=== PATIENT | male | born 1950 | race Caucasian/White ===

== ENCOUNTER 2020-08-20 01:18 | Outpatient (CLI) | payer MEDICARE, OTHER, SELFPAY ==
[2020-08-20 18:01] LABS: SARS-CoV-2 RNA PCR Negative
== END 2020-08-20 01:19 | disposition home or self-care (01) ==
LOC: ANHCOVIDDT 01:19
PROVIDERS: PCP Internal Medicine; Visit Provider Internal Medicine Critical Care Medicine
DX: Z01.812 Encounter for preprocedural laboratory examination (principal); Z20.828 Contact with and (suspected) exposure to other viral communicable diseases
CPT/HCPCS: 87635; C9803; U0003

== ENCOUNTER 2020-08-22 07:41 | Outpatient (CLI) | payer MEDICARE, OTHER, SELFPAY ==
--- NOTE | 2020-09-06 13:46 | WPDSLEEPSTUD ---
Sleep Study Date of Study: 08/22/20 Interpreting Physician: Viry Vora MD Sleep Study Type: Split Polysomnogram Height: 1.91 m Weight: 102.058 kg Body Mass Index: 28.1 Hendrix: 7 Reason for Sleep Study ASV TITRATION Central sleep apnea, not responding to CPAP Presents for ASV titration, Adaptive Servo-Ventilation. Sleep History Yobany Summers is a 69 year old man with long history of obstructive sleep apnea and more recently primarily central apneas. his most recent treatment has consisted of CPAP 15 cm which has not been easy to tolerate and has not been helpful. He was diagnosed with obstructive sleep apnea syndrome on a split night study June 04, 2015, at [facility]. He had moderate obstructive sleep apnea with an AHI of 21.7 with associated nocturnal desaturations to 86%. He was titrated to CPAP with a nasal mask at 14 cm, which improved his AHI to 2.5 events per hour with elimination of nocturnal desaturations. He had a difficult time tolerating 14 cm and was eventually decreased to 10 cm of water pressure which did not work as the pressure did not feel high enough, feeling claustrophobic. He was not able to get enough sleep, only 1 or 2 hours of sleep at night. Melatonin helps fall asleep, but only if he has the mask off. His reports witnessed apneas. He has a brother and a son that use CPAP, so there is a family history. He frequently awakens from sleep short of breath. He rarely snores and it is never loud enough that others complain. He occasionally has trouble sleeping with cold. He constantly awakes gasping for breath at night and constantly has breathing problems at night observed by others. Rarely does he fall asleep during the day and rarely is it involuntary. He does not fall asleep while driving. He does not have loss of muscle tone with strong emotion. He denies sleep paralysis or vivid dreamlike scenes upon awakening or falling asleep. He occasionally remembers his dreams. He frequently has racing thoughts. He occasionally notices parts of his body jerking and kick at night. He rarely has crawly or aching feelings in his legs or has leg pain at night. He rarely grinds his teeth at night. He rarely wakes up with pain in the neck and spine. Normal bedtime is 10:30 to 11 p.m., falling asleep in 10 minutes, waking 1 or 2 times at night for 5 minutes to take off the CPAP. He awakens between 6 and 7 in the morning. He has 7 to 8 hours of sleep, but not continuous, very fragmented. Weekend schedule is the same. He denies taking naps. He has problems adjusting to using a ramp for 20 min, will wake at night and need to turn machine off then on to return to the ramp after waking early in the night. He is drinking alcohol about 4 nights a week, up to 3 drinks per night. During pandemic, this has increased. He takes melatonin at bedtime. A chin strap is due to arrive at his house, as he is a mouth breather sleeping on his stomach, and this complicates his PAP therapy. He has an extremely dry mouth at night, will wake at night due to having his mouth feel very dry. He feels that the pressure is greater now than it previously was. He has an ivis on his phone that he uses to help track his AHI. Some nights it is very high, around 20. Other nights, it is as low as 3. He has very few nights where he is able to tolerate the device greater than 4 hours. On these nights the AHI is low. His overall AHI is 13.7 and he has only used the device greater than 4 hours on 7% of the nights. he often wakes up to find his mask on the floor or hanging on the side of the bed, and he does not know when he took it off Compliance: June 19 through July 18, 2020 30 days 7% or 2 days greater than 4 hours, average usage 2 hours 15 cm AHI is 13.7 DATA: * 06/04/2015 Split night at [facility]; AHI 21.7, lowest saturation 86%, optimal pressure 14 cm. * 08/23/2018 CPAP titration; 6 cm to 13 cm dede
--- NOTE | 2020-09-06 15:59 | P.SLEEP_ITS ---
Sleep Study Date of Study: 08/22/20 Height: 1.91 m [facility] Past Medical History Medical History (Updated 09/06/20 @ 15:32 by Viry Vora MD) Bilateral hearing loss Complex sleep apnea syndrome Dupuytrens contracture Encounter for preventative adult health care examination Encounter for screening for lipoid disorders Encounter for screening for other metabolic disorders Hyperglycemia Hypothyroidism (acquired) Leg pain, left Prostate cancer screening Family History Family History Father Family history of sleep apnea Diabetes mellitus Family history of Alzheimer's disease Sibling Family history of sleep apnea Diabetes mellitus Mother Family history of osteoarthritis Social History Social History Smoking status: Former smoker Smoking end date: 11/23/83 Alcohol intake: current
[2020-09-07 09:44] VITALS: BMI 28.1
== END 2020-08-22 07:42 | disposition home or self-care (01) ==
LOC: ANHCSM 07:49
PROVIDERS: PCP Internal Medicine; Visit Provider Internal Medicine Critical Care Medicine
DX: G47.31 Primary central sleep apnea (principal); E03.9 Hypothyroidism, unspecified; R73.9 Hyperglycemia, unspecified
CPT/HCPCS: 95811

== ENCOUNTER 2020-09-25 12:54 | Outpatient (CLI) | payer MEDICARE, OTHER, SELFPAY ==
[2020-09-25 13:18] LABS: Basophils Absolute Auto 0.1 K/mm3 (0.0-0.1); Basophils Percent Auto 0.7 % (0.2-1.2); Eosinophils Absolute Auto 0.1 K/mm3 (0-0.3); Hemoglobin 14.9 g/dL (14.0-18.0); Immature Granulocyte Absolute 0.03 K/mm3 (0.00-0.031); Immature Granulocyte Percent A 0.4 % (0-0.5); Lymphocytes Percent Auto 32.8 % (18.3-44.2); Mean Corpuscular HGB Conc 34.7 g/dl (32-36); Mean Corpuscular Hemoglobin 30.7 pg (26-34); Mean Corpuscular Volume 88.7 fl (80-100); Mean Platelet Volume 9.3 fl (7.4-10.4); Monocytes Absolute Auto 0.8 K/mm3 (0.1-0.6); Monocytes Percent Auto 10.4 % (2.6-8.5); Neutrophils Percent Auto 54.7 % (45.5-73.1); Platelet Count Result 212 k/mm3 (150-375); Red Blood Count 4.85 M/mm3 (4.6-6.20); Red Cell Distribution Width 13.2 % (11.5-14.5); White Blood Count 7.3 K/mm3 (4.5-10.0)
[2020-09-25 13:36] LABS: Alanine Aminotransferase 24 U/L (4-50); Albumin Level 4.3 g/dL (3.5-5.1); Alkaline Phosphatase 61 U/L (38-126); Anion Gap 8 mmol/L (8-16); Aspartate Amino Transferase 26 U/L (17-59); Blood Urea Nitrogen 13 mg/dL (9-20); Calcium 9.2 mg/dL (8.4-10.2); Carbon Dioxide 33 mmol/L (22-30); Chloride 102 mmol/L (98-107); Cholesterol 163 mg/dL (0-200); Estimated Glomerular Filt Rate > 60; Glucose 114 mg/dL (75-110); HDL Direct 42 mg/dL; Potassium 4.1 mmol/L (3.4-5.0); Sodium 143 mmol/L (137-145); Triglycerides 122 mg/dL (<150)
[2020-09-25 13:47] LABS: LDL Cholesterol Direct 88 mg/dL
[2020-09-25 14:26] LABS: Vitamin D 25 Hydroxy 55.8 ng/mL
[2020-09-25 15:04] LABS: Prostate Specific Antigen 1.8 ng/mL (< OR = 4.0)
== END 2020-09-25 12:55 | disposition home or self-care (01) ==
LOC: ANHLAB 12:59
PROVIDERS: PCP Internal Medicine; Visit Provider Internal Medicine
DX: Z13.228 Encounter for screening for other metabolic disorders (principal); Z13.220 Encounter for screening for lipoid disorders; Z12.5 Encounter for screening for malignant neoplasm of prostate; E03.9 Hypothyroidism, unspecified; E55.9 Vitamin D deficiency, unspecified
CPT/HCPCS: 36415; 80053; 80061; 82306; 84153; 84443; 85025; G0103

== ENCOUNTER → 2020-10-08 07:38 | Outpatient (CLI) | payer MEDICARE, OTHER, SELFPAY ==
--- NOTE | ~2020-10-08 | US_ITS ---
EXAMINATION: [facility] EXAM DATE: 10/08/2020 08:05 INDICATION: Z13.6 - Encounter for screening for cardiovascular disorders . TECHNIQUE: Multiple grayscale and Doppler images of the aorta were obtained (by a technologist who pe rformed the scan) and subsequently reviewed. There is no prior study for comparison. FINDINGS: The aorta measures 2.6 cm proximally, 2.0 cm mid aspect, 1.9 cm distally. Common iliac arteries also normal in caliber. Minimal scattered arterial sclerosis identified. IMPRESSION: Normal aortic caliber. Reviewed, dictated and finalized at location A. [employer]IST IMPRESSION: Normal aortic caliber.
== END ==
PROVIDERS: PCP Internal Medicine; Visit Provider Clinical Nurse Specialist
DX: Z13.6 Encounter for screening for cardiovascular disorders (principal)
CPT/HCPCS: 76706

== ENCOUNTER 2020-10-24 07:36 | Outpatient (CLI) | payer MEDICARE, OTHER, SELFPAY ==
--- NOTE | 2020-10-24 07:41 | ECHO_ITS ---
Patient Info Name: Yobany Summers Age: 70 years : 1950 Gender: Male Ht: 75 in Wt: 220 lbs BSA: 2.31 m2 HR: 51 bpm BP: 134 / 80 mmHg Heart Rhythm: Bradycardia, Sinus Rhythm Technical Quality: Good Exam Date: 10/24/2020 7:44 AM Exam Location: [facility] Patient Status: Outpatient Admit Date: 10/24/2020 Staff Ordering Physician: Candida Vernon Lapel Padder: Mich Grande RDCS, RT Attending Provider: Candida Vernon Referring Physician: Janeen JAVIER; Exam Type: CA echo doppler color flow Study Info Indications R07.89 - Other chest pain Complete two-dimensional, color flow and Doppler transthoracic echocardiogram is performed. Strain analysis performed. Summary 1. Left ventricular chamber dimension is upper limits of normal size.. 2. Left ventricular systolic function is normal, estimated at 60-65%. 3. The left ventricular diastolic function is grade II diastolic dysfunction. 4. There is mild mitral valve regurgitation. 5. No pulmonary hypertension, estimated pulmonary arterial systolic pressure is 27 mmHg. Left Ventricle Left ventricular chamber dimension is upper limits of normal size.. Left ventricular systolic function is normal, estimated at 60-65%. There is no increased left ventricular wall thickness. The left ventricular diastolic function is grade II diastolic dysfunction. Global longitudinal strain is normal at -19 %. Right Ventricle Right ventricular chamber dimension is normal. Right ventricular systolic function is normal. Left Atria Left atrial chamber dimension is normal. Right Atria Right atrial chamber dimension is normal. Aortic Valve The aortic valve is not well visualized. There is no aortic valve stenosis. There is no aortic valve regurgitation. Pulmonic Valve The pulmonic valve is not well visualized. Mitral Valve The mitral valve has thickened leaflets. There is mild mitral valve regurgitation. The mitral valve annulus is mildly calcified. Tricuspid Valve The tricuspid valve leaflets are normal. There is mild tricuspid valve regurgitation. No pulmonary hypertension, estimated pulmonary arterial systolic pressure is 27 mmHg. Pericardium/Pleural The pericardium appears normal. There is no pericardial effusion. Inferior Vena Cava Normal inferior vena cava with >50% collapse upon inspiration consistent with normal right atrial pressure, 5 mmHg. Aorta The aortic root size at the sinus of Valsalva is normal. There is mild aortic atherosclerosis. Left Ventricular Outflow Tract Name Value Normal LVOT 2D LVOT Diameter 2.0 cm LVOT Doppler LVOT Peak Gradient 4 mmHg LVOT Mean Gradient 2 mmHg LVOT VTI 21 cm LVOT VTI/AV VTI Ratio 0.8 LVOT Stroke Volume 66 ml LVOT CO 4.0 l/min LVOT CI 1.7 l/min/m2 Mitral Valve Name
--- NOTE | 2020-10-24 07:41 | EST_ITS ---
Patient Info Name: Yobany Summers Age: 70 years : 1950 Gender: Male Ht: 75 in Wt: 220 lbs BSA: 2.31 m2 Exam Date: 10/24/2020 9:27 AM Exam Location: [facility] Stress Patient Status: Outpatient Admit Date: 10/24/2020 Staff Ordering Physician: Candida Vernon Attending Provider: Candida Vernon Exercise Technologist: Mich Grande RDCS, RT Exercise Physician: Demetrio King DO Exam Type: CA stress test treadmill Study Info A treadmill exercise stress test was performed. Summary 1. 1. Negative Conor exercise stress test for ischemic ST changes by ECG criteria. 2. 2. Good functional capacity, achieving 8.9 METs of workload. 3. 3. Baseline hypertension. 4. 4. Appropriate HR response to exercise. 5. 5. Appropriate HR recovery at 1 minute post exercise. 6. 6. No imaging with stress testing. 7. 7. Patient informed of the above results. Protocol: Conor Stress ECG Details Stage: REST Duration (min): 1 min : 14 sec Speed (mph): 0.0 Grade (%): 0 HR (bpm): 63 SBP (mmHg): 150 DBP (mmHg): 86 METS: --- Stage: REST Duration (min): 3 min : 48 sec Speed (mph): 0.0 Grade (%): 0 HR (bpm): 52 SBP (mmHg): 150 DBP (mmHg): 86 METS: --- Stage: STAGE 1 Duration (min): 1 min : 0 sec Speed (mph): 1.7 Grade (%): 10 HR (bpm): 83 SBP (mmHg): 150 DBP (mmHg): 86 METS: --- Stage: STAGE 1 Duration (min): 2 min : 0 sec Speed (mph): 1.7 Grade (%): 10 HR (bpm): 94 SBP (mmHg): 150 DBP (mmHg): 86 METS: --- Stage: STAGE 1 Duration (min): 3 min : 0 sec Speed (mph): 1.7 Grade (%): 10 HR (bpm): 98 SBP (mmHg): 183 DBP (mmHg): 57 METS: --- Stage: STAGE 2 Duration (min): 1 min : 0 sec Speed (mph): 2.5 Grade (%): 12 HR (bpm): 108 SBP (mmHg): 183 DBP (mmHg): 57 METS: --- Stage: STAGE 2 Duration (min): 2 min : 0 sec Speed (mph): 2.5 Grade (%): 12 HR (bpm): 116 SBP (mmHg): 160 DBP (mmHg): 58 METS: --- Stage: STAGE 2 Duration (min): 3 min : 0 sec Speed (mph): 2.5 Grade (%): 12 HR (bpm): 119 SBP (mmHg): 160 DBP (mmHg): 58 METS: --- Stage: STAGE 3 Duration (min): 1 min : 0 sec Speed (mph): 3.4 Grade (%): 14 HR (bpm): 133 SBP (mmHg): 165 DBP (mmHg): 55 METS: --- Stage: STAGE 3 Duration (min): 1 min : 7 sec Speed (mph): 3.4 Grade (%): 14 HR (bpm): 126 SBP (mmHg): 165 DBP (mmHg): 55 METS: --- Stage: RECOVERY Duration (min): 0 min : 53 sec Speed (mph): 0.0 Grade (%): 0 HR (bpm): 108 SBP (mmHg): 165 DBP (mmHg): 55 METS: --- Stage: RECOVERY Duration (min): 1 min : 52 sec Speed (mph): 0.0 Grade (%): 0 HR (bpm): 76 SBP (mmHg): 165 DBP (mmHg): 55 METS: --- Stage: RECOVERY Duration (min): 1 min : 53 sec Speed (mph): 0.0
== END 2020-10-24 07:37 | disposition home or self-care (01) ==
PROVIDERS: PCP Internal Medicine; Visit Provider Clinical Nurse Specialist
DX: R07.89 Other chest pain (principal); I34.0 Nonrheumatic mitral (valve) insufficiency
CPT/HCPCS: 93017; 93306

== ENCOUNTER 2021-09-30 09:56 | Outpatient (CLI) | payer MEDICARE, OTHER, SELFPAY ==
[2021-09-30 10:34] LABS: Basophils Percent Auto 0.5 % (0.2-1.2); Eosinophils Absolute Auto 0.1 K/mm3 (0-0.3); Eosinophils Percent Auto 1.3 % (0-4.4); Hematocrit 41.7 % (42.0-52.0); Hemoglobin 14.5 g/dL (14.0-18.0); Immature Granulocyte Absolute 0.02 K/mm3 (0.00-0.031); Immature Granulocyte Percent A 0.3 % (0-0.5); Lymphocytes Absolute Auto 2.19 K/mm3 (0.9-3.2); Lymphocytes Percent Auto 36.7 % (18.3-44.2); Mean Corpuscular HGB Conc 34.8 g/dl (32-36); Mean Corpuscular Hemoglobin 30.8 pg (26-34); Mean Corpuscular Volume 88.5 fl (80-100); Mean Platelet Volume 9.6 fl (7.4-10.4); Monocytes Absolute Auto 0.8 K/mm3 (0.1-0.6); Monocytes Percent Auto 13.1 % (2.6-8.5); Neutrophils Absolute Auto 2.9 K/mm3 (1.3-6.7); Neutrophils Percent Auto 48.1 % (45.5-73.1); Platelet Count Result 206 k/mm3 (150-375); Red Blood Count 4.71 M/mm3 (4.6-6.20); Red Cell Distribution Width 13.2 % (11.5-14.5)
[2021-09-30 12:43] LABS: Alanine Aminotransferase 54 U/L (4-50); Albumin Level 4.2 g/dL (3.5-5.1); Alkaline Phosphatase 51 U/L (38-126); Anion Gap 5 mmol/L (8-16); Aspartate Amino Transferase 37 U/L (17-59); Blood Urea Nitrogen 20 mg/dL (9-20); Calcium 8.9 mg/dL (8.4-10.2); Carbon Dioxide 31 mmol/L (22-30); Chloride 102 mmol/L (98-107); Cholesterol 168 mg/dL (0-200); Estimated Glomerular Filt Rate > 60; Glucose 104 mg/dL (65-110); HDL Direct 38 mg/dL; Potassium 4.4 mmol/L (3.4-5.0); Sodium 138 mmol/L (137-145); Triglycerides 108 mg/dL (<150)
[2021-09-30 13:13] LABS: Prostate Specific Antigen 1.9 ng/mL (< OR = 4.0)
[2021-09-30 14:03] LABS: Vitamin D 25 Hydroxy 61.8 ng/mL
[2021-09-30 18:56] LABS: LDL Cholesterol Direct 100 mg/dL
== END 2021-09-30 09:57 | disposition home or self-care (01) ==
LOC: ANHLAB 10:17
PROVIDERS: PCP Internal Medicine; Visit Provider Nurse Practitioner
DX: E55.9 Vitamin D deficiency, unspecified (principal); I10 Essential (primary) hypertension; Z13.220 Encounter for screening for lipoid disorders; Z12.5 Encounter for screening for malignant neoplasm of prostate; E03.9 Hypothyroidism, unspecified
CPT/HCPCS: 36415; 80053; 80061; 82306; 84153; 84443; 85025; G0103

== ENCOUNTER 2022-02-27 09:09 | Outpatient (CLI) | payer MEDICARE, OTHER, SELFPAY ==
--- NOTE | ~2022-02-27 | XR_ITS ---
EXAMINATION: XR knee LT 3V DATE: 02/27/2022 09:42 INDICATION: Left knee pain. TECHNIQUE: 3 views of left knee were obtained. COMPARISON: None. FINDINGS: Bone alignment is normal. No fracture. There is mild tricompartmental osteoarthritis charac terized by tiny osteophytes. No joint space narrowing. No knee joint effusion. IMPRESSION: 1. Mild left knee osteoarthritis. Reviewed, dictated and finalized at location A.
== END 2022-02-27 09:10 | disposition home or self-care (01) ==
PROVIDERS: PCP Internal Medicine; Visit Provider Nurse Practitioner
DX: M25.562 Pain in left knee (principal); M17.12 Unilateral primary osteoarthritis, left knee
CPT/HCPCS: 73562

== ENCOUNTER 2022-10-09 10:21 | Outpatient (CLI) | payer MEDICARE, OTHER, SELFPAY ==
[2022-10-09 19:32] LABS: Basophils Percent Auto 0.5 % (0.2-1.2); Eosinophils Absolute Auto 0.1 K/mm3 (0-0.3); Eosinophils Percent Auto 1.5 % (0-4.4); Hematocrit 45.1 % (42.0-52.0); Hemoglobin 15.2 g/dL (14.0-18.0); Hemoglobin A1C 5.8 % (<5.7); Immature Granulocyte Absolute 0.02 K/mm3 (0.00-0.031); Immature Granulocyte Percent A 0.3 % (0-0.5); Lymphocytes Absolute Auto 2.38 K/mm3 (0.9-3.2); Lymphocytes Percent Auto 30.6 % (18.3-44.2); Mean Corpuscular HGB Conc 33.7 g/dl (32-36); Mean Corpuscular Hemoglobin 30.2 pg (26-34); Mean Corpuscular Volume 89.5 fl (80-100); Mean Platelet Volume 9.9 fl (7.4-10.4); Monocytes Absolute Auto 0.8 K/mm3 (0.1-0.6); Neutrophils Absolute Auto 4.5 K/mm3 (1.3-6.7); Neutrophils Percent Auto 57.1 % (45.5-73.1); Platelet Count Result 223 k/mm3 (150-375); Red Blood Count 5.04 M/mm3 (4.6-6.20); Red Cell Distribution Width 13.5 % (11.5-14.5); White Blood Count 7.8 K/mm3 (4.5-10.0)
[2022-10-09 19:34] LABS: Alanine Aminotransferase 47 U/L (6-50); Albumin Level 4.3 g/dL (3.5-5.1); Alkaline Phosphatase 69 U/L (38-126); Anion Gap 9 mmol/L (8-16); Aspartate Amino Transferase 48 U/L (17-59); Bilirubin,Total 1.1 mg/dL (0.2-1.3); Blood Urea Nitrogen 15 mg/dL (9-20); Carbon Dioxide 32 mmol/L (22-30); Chloride 100 mmol/L (98-107); Cholesterol 187 mg/dL (0-200); Estimated Glomerular Filt Rate > 60; Glucose 104 mg/dL (65-110); HDL Direct 39 mg/dL; Potassium 4.2 mmol/L (3.4-5.0); Sodium 141 mmol/L (137-145); Triglycerides 78 mg/dL (<150)
[2022-10-09 19:51] LABS: LDL Cholesterol Direct 111 mg/dL
[2022-10-09 20:06] LABS: Prostate Specific Antigen 1.5 ng/mL (< OR = 4.0)
== END 2022-10-09 10:22 | disposition home or self-care (01) ==
LOC: ANHGOSHLAB 10:27
PROVIDERS: PCP Internal Medicine; Visit Provider Nurse Practitioner
DX: Z12.5 Encounter for screening for malignant neoplasm of prostate (principal); R73.9 Hyperglycemia, unspecified; Z13.29 Encounter for screening for other suspected endocrine disorder; Z13.220 Encounter for screening for lipoid disorders; E03.9 Hypothyroidism, unspecified; I10 Essential (primary) hypertension
CPT/HCPCS: 36415; 80053; 80061; 83036; 84153; 84443; 85025; G0103

== ENCOUNTER 2023-05-07 13:32 | Emergency (ER) | payer MEDICARE, OTHER, SELFPAY ==
[2023-05-07 13:43] VITALS: BP 109/69; PULSE 68; RESP 16; TEMP 37.1; O2SAT 95
--- NOTE | 2023-05-07 13:47 | ED.WOUNDLAC ---
HPI - Wound/Laceration General Chief Complaint: Wound/Laceration Stated Complaint: Left Hand Laceration Time Seen by Provider: 05/07/23 13:38 Source: patient Mode of arrival: ambulatory Limitations: no limitations History of Present Illness HPI narrative: Patient is a 72-year-old male who presents with laceration to left index finger. Patient states he cut it on a chopped off injury history here. Patient states does not do well with blood and has passed out frequently with IM injections. Patient unsure of tetanus status. Denies any numbness tingling to hand. On examination of finger patient states he feels very faint, having blurry vision and feels very hot. Related Data Home Medications Medication Instructions Recorded Confirmed melatonin 5 mg capsule mg PO 10/05/19 01/16/23 grqomrljzimk-pvyprpqo-fizkbc tablet 1 tablet PO DAILY 08/07/20 01/16/23 cetirizine 10 mg tablet (Zyrtec) 10 mg PO DAILY PRN 10/07/21 01/16/23 cholecalciferol (vitamin D3) 25 25 mcg PO DAILY 10/10/22 01/16/23 mcg (1,000 unit) capsule eyelid cleanser combination 1 ea topical 10/10/22 01/16/23 sodium chloride 5 % eye drops 1 drp EACH EYE QHS 10/10/22 01/16/23 (Bill 128) omega-3 fatty acids 1,000 mg See Rx Instructions PO DAILY 12/12/22 01/16/23 capsule (Fish Oil Concentrate) Allergies Allergy/AdvReac Type Severity Reaction Status Date / Time No Known Allergies Allergy Verified 05/07/23 13:42 Review of Systems Review of Systems: All systems reviewed & are unremarkable except as noted in HPI and below Constitutional: Constitutional: Denies body ache(s), Denies chills, Reports excessive sweating, Denies fatigue, Denies fever(s), Denies headache(s), Denies malaise and Reports weakness Eyes: Eyes: Reports blurry vision, Denies irritation and Denies loss of vision ENT: Denies otalgia, Denies headache(s), Denies nasal discharge, Denies sinus pain and Denies sore throat Cardiovascular: Cardiovascular: Denies chest pain, Denies irregular heart rhythm and Denies dyspnea Respiratory: Respiratory: Denies dyspnea Gastrointestinal: Gastrointestinal: Denies abdominal pain, Denies melena, Denies hematochezia, Denies diarrhea, Denies nausea and Denies vomiting Musculoskeletal: Musculoskeletal: Denies back pain, Denies myalgias and Denies arthralgias Integumentary/Breasts: Skin/Breast: Denies pruritus, Denies rash and Reports other (Laceration left index finger) Neurologic: Reports dizziness, Denies headache(s), Denies loss of vision and Denies weakness Psychiatric: Psychiatric: Reports no additional psychiatric complaints Endocrine: Endocrine: Denies fatigue [facility] Past Medical History Medical History (Reviewed 01/16/23 @ 09:35 by Maureen Avery [facility]) Bilateral hearing loss Complex sleep apnea syndrome Dupuytrens contracture Encounter for preventative adult health care examination Encounter for screening for lipoid disorders Encounter for screening for other metabolic disorders Hyperglycemia Hypothyroidism (acquired) Leg pain, left Need for influenza vaccination OAB (overactive bladder) Prostate cancer screening Surgical History Surgical History History of skin surgery basal cell removal Family History Family History Father Family history of sleep apnea Diabetes mellitus Family history of Alzheimer's disease Sibling Family history of sleep apnea Diabetes mellitus Mother Family history of osteoarthritis Social History Social History Social History: Caffeine-coffee daily Smoking status: Former smoker Smoking end date: 11/23/83 Additional smoking assessment comments: former heavy smoker, smoked for 15 years off and on Alcohol intake: current Alcohol use details: occasionally/socially-Beer Lack of Transportation: No Lack of Food: Never True Current
[2023-05-07 13:56] VITALS: BP 86/57
--- NOTE | 2023-05-07 14:00 | PC.NURSE ---
1400- pt feels hot to touch and diaphoretic, reports he is dizzy and is having difficulty.
== END 2023-05-07 14:12 | disposition short-term general hospital (02) ==
PROVIDERS: Emergency Provider Nurse Practitioner Family; PCP Internal Medicine
DX: I95.9 Hypotension, unspecified (principal); S61.211A Laceration without foreign body of left index finger without damage to nail, initial encounter; W27.0XXA Contact with workbench tool, initial encounter; Z87.891 Personal history of nicotine dependence; E03.9 Hypothyroidism, unspecified
CPT/HCPCS: 99212; G0463

== ENCOUNTER 2023-05-07 14:32 | Emergency (ER) | payer MEDICARE, OTHER, SELFPAY ==
--- NOTE | ~2023-05-07 | XR_ITS ---
XR finger 2nd LT min 2V 05/07/2023 17:28 INDICATION: Laceration by saw. PROCEDURE: 3 views left second finger COMPARISON: No prior studies for comparison. FINDINGS: Fracture, dislocation or subluxation is not identified. There is mild polyarticular osteoar thritis. There is a soft tissue laceration overlying the distal phalanx. No foreign bodies are ident ified. IMPRESSION: 1: NO ACUTE BONE OR JOINT ABNORMALITY IDENTIFIED. Reviewed, dictated and finalized at location L.
[2023-05-07 14:35] VITALS: BP 127/74; PULSE 66; RESP 18; TEMP 36.6; O2SAT 98
--- NOTE | 2023-05-07 17:34 | ED.WOUNDLAC ---
HPI - Wound/Laceration General Chief Complaint: Wound/Laceration Stated Complaint: laceration on left index finger Time Seen by Provider: 05/07/23 17:07 History of Present Illness HPI narrative: Patient is a 72-year-old male here for evaluation of a laceration to his left second digit sustained earlier today. Patient states that he was using a saw when he lost control of the saw and believes the metal blade cut his fingertip. He presented to an urgent care and had a vagal episode when they were doing the dressing changes and he was referred to the ED. Patient states that he feels fine now, states that he has frequent vagal episodes in response to pain. His last tetanus shot was in 2017. He denies any numbness, tingling, weakness in the finger. Related Data Home Medications Medication Instructions Recorded Confirmed melatonin 5 mg capsule mg PO 10/05/19 01/16/23 nmzsanewcuji-nhablemz-lqrhop tablet 1 tablet PO DAILY 08/07/20 01/16/23 cetirizine 10 mg tablet (Zyrtec) 10 mg PO DAILY PRN 10/07/21 01/16/23 cholecalciferol (vitamin D3) 25 25 mcg PO DAILY 10/10/22 01/16/23 mcg (1,000 unit) capsule eyelid cleanser combination 1 ea topical 10/10/22 01/16/23 sodium chloride 5 % eye drops 1 drp EACH EYE QHS 10/10/22 01/16/23 (Bill 128) omega-3 fatty acids 1,000 mg See Rx Instructions PO DAILY 12/12/22 01/16/23 capsule (Fish Oil Concentrate) Allergies Allergy/AdvReac Type Severity Reaction Status Date / Time No Known Allergies Allergy Verified 05/07/23 17:18 Review of Systems Review of Systems: Gen.: Denies fevers or chills Eyes: Denies eye pain or visual change ENT: Denies congestion Respiratory: Denies shortness of breath or cough CV: Denies chest pain or palpitations GI: Denies abdominal pain nausea, emesis or diarrhea denies burning, urgency, frequency or hematuria Musculoskeletal: Denies back pain or muscle pain Neuro: Denies numbness, tingling, weakness or focal weakness Skin: Reports laceration to finger Except as documented, all other systems reviewed and negative PMFSH Past Medical History Medical History Bilateral hearing loss Complex sleep apnea syndrome Dupuytrens contracture Encounter for preventative adult health care examination Encounter for screening for lipoid disorders Encounter for screening for other metabolic disorders Hyperglycemia Hypothyroidism (acquired) Leg pain, left Need for influenza vaccination OAB (overactive bladder) Prostate cancer screening Surgical History Surgical History History of skin surgery basal cell removal Family History Family History Father Family history of sleep apnea Diabetes mellitus Family history of Alzheimer's disease Sibling Family history of sleep apnea Diabetes mellitus Mother Family history of osteoarthritis Social History Social History Social History: Caffeine-coffee daily Smoking status: Former smoker Smoking end date: 11/23/83 Additional smoking assessment comments: former heavy smoker, smoked for 15 years off and on Alcohol intake: current Alcohol use details: occasionally/socially-Beer Lack of Transportation: No Lack of Food: Never True Current Housing: I Have Housing Concerned About Future Housing: No Difficulty Paying Gas/Electric Bills: No Difficulty Paying for Meds: No Currently Unemployed: No Education: Associate Degree Difficulty w/ Childcare or Family Care: No Exam Narrative: Gen: Alert, oriented, no acute distress Eyes: EOMI, no icterus Pulm: Respirations even and unlabored, symmetric thorax expansion, no audible stridor or visible cyanosis CV: Regular rate per telemetry GI: No distension, no voluntary/involuntary guarding Neuro: AOx4, moves all extre
[2023-05-07] MEDS: TETANUS,DIPHTHERIA,AC PERTUSSIS ADULT (0.5 ML) BOOSTRIX IM (17:43)
[2023-05-07 18:06] VITALS: BP 126/73; PULSE 60; RESP 18; O2SAT 97
--- NOTE | 2023-05-15 12:11 | PC.NURSE ---
LATE ENTRY This note is being entered to document information to the patient's record. The following information was omitted on [05/07/23], by [Carolyn]. Pt from urgent care with lac on left index finger. Triage note with error stating to right index finger. Carolyn Swenson RN
== END 2023-05-07 18:53 | disposition home or self-care (01) ==
LOC: ANHED 18:15
PROVIDERS: Emergency Provider Physician Assistant; PCP Internal Medicine
DX: S61.211A Laceration without foreign body of left index finger without damage to nail, initial encounter (principal); Z23 Encounter for immunization; E03.9 Hypothyroidism, unspecified; N32.81 Overactive bladder; M72.0 Palmar fascial fibromatosis [Dupuytren]; G47.39 Other sleep apnea; Z85.828 Personal history of other malignant neoplasm of skin; Z87.891 Personal history of nicotine dependence; W27.0XXA Contact with workbench tool, initial encounter
CPT/HCPCS: 73140; 90471; 90715; 99283

== ENCOUNTER 2023-08-14 08:09 | Outpatient (CLI) | payer MEDICARE, OTHER, SELFPAY | END 2023-08-14 08:10 | disposition home or self-care (01) | LOC: ANHAUDASC 08:09 | PROVIDERS: PCP Internal Medicine; Visit Provider Nurse Practitioner | DX: H93.19 Tinnitus, unspecified ear (principal); H90.3 Sensorineural hearing loss, bilateral | CPT/HCPCS: 92557; 92567 ==

== ENCOUNTER 2023-12-03 15:40 | Emergency (ER) | payer MEDICARE, OTHER, SELFPAY ==
[2023-12-03 15:52] VITALS: BP 138/80; PULSE 64; RESP 16; TEMP 36.6; O2SAT 98
--- NOTE | 2023-12-03 15:59 | ED.URI ---
HPI - URI/Sore Throat General Chief Complaint: Upper Respiratory Infection Stated Complaint: Cough Time Seen by Provider: 12/03/23 15:51 Source: patient and RN notes reviewed Mode of arrival: ambulatory Limitations: no limitations History of Present Illness HPI Narrative: Patient presents today with an 8 day history of cough and chest congestion. He also reports some intermittent shortness of breath with exertion. Denies any additional symptoms to include nasal congestion, rhinorrhea, fever. He has been taking Robitussin, DayQuil, NyQuil, Mucinex with little relief. Denies history of asthma or COPD. He is a nonsmoker. Related Data Home Medications Medication Instructions Recorded Confirmed melatonin 5 mg capsule mg PO 10/05/19 06/30/23 gwuyjgowcdqf-ukehdvwx-cjzbxx tablet 1 tablet PO DAILY 08/07/20 06/30/23 cetirizine 10 mg tablet (Zyrtec) 10 mg PO DAILY PRN 10/07/21 06/30/23 cholecalciferol (vitamin D3) 25 25 mcg PO DAILY 10/10/22 06/30/23 mcg (1,000 unit) capsule eyelid cleanser combination 1 ea topical 10/10/22 06/30/23 sodium chloride 5 % eye drops 1 drp EACH EYE QHS 10/10/22 06/30/23 (Bill 128) omega-3 fatty acids 1,000 mg See Rx Instructions PO DAILY 12/12/22 06/30/23 capsule (Fish Oil Concentrate) Allergies Allergy/AdvReac Type Severity Reaction Status Date / Time No Known Allergies Allergy Verified 12/03/23 15:48 Review of Systems Review of Systems: CONSTITUTIONAL: Denies body aches, fever, chills, or sweats. EYES: Denies visual changes, redness, or discharge. ENT: Denies rhinorrhea, congestion, sore throat, or otalgia. CARDIOVASCULAR: Denies chest pain, palpitations, or edema. RESPIRATORY: + cough, chest congestion, shortness of breath GASTROINTESTINAL: Denies abdominal pain, nausea, vomiting, or diarrhea. GENITOURINARY: Denies dysuria or hematuria. SKIN: Denies rash, itching, or wounds. MUSCULOSKELETAL: Denies back pain, joint pain, or myalgia. NEUROLOGIC: Denies headache, numbness, tingling, or weakness. PSYCH: Denies depression or anxiety. [facility] Past Medical History Medical History Bilateral hearing loss Complex sleep apnea syndrome Dupuytrens contracture Encounter for preventative adult health care examination Encounter for screening for lipoid disorders Encounter for screening for other metabolic disorders Hyperglycemia Hypothyroidism (acquired) Leg pain, left Need for influenza vaccination OAB (overactive bladder) Prostate cancer screening Surgical History Surgical History History of skin surgery basal cell removal Family History Family History Father Family history of sleep apnea Diabetes mellitus Family history of Alzheimer's disease Sibling Family history of sleep apnea Diabetes mellitus Mother Family history of osteoarthritis Social History Social History Social History: Caffeine-coffee daily Smoking status: Former smoker Smoking end date: 11/23/83 Additional smoking assessment comments: former heavy smoker, smoked for 15 years off and on Alcohol intake: current Alcohol use details: occasionally/socially-Beer Lack of Transportation: No Lack of Food: Never True Current Housing: I Have Housing Concerned About Future Housing: No Difficulty Paying Gas/Electric Bills: No Difficulty Paying for Meds: No Currently Unemployed: No Education: Associate Degree Difficulty w/ Childcare or Family Care: No Comments At time of signature, I have reviewed and agree with nursing past medical, surgical, social and family history unless otherwise noted. Please see nursing chart for further information. There is no relevant family history pertinent to the presenting complaint Exam Narrative: GENERAL
== END 2023-12-03 16:07 | disposition home or self-care (01) ==
PROVIDERS: Emergency Provider Nurse Practitioner; PCP Internal Medicine
DX: J22 Unspecified acute lower respiratory infection (principal); Z87.891 Personal history of nicotine dependence; E03.9 Hypothyroidism, unspecified
CPT/HCPCS: 99213; G0463

== ENCOUNTER 2024-05-27 14:06 | Outpatient (CLI) | payer MEDICARE, OTHER, SELFPAY ==
--- NOTE | ~2024-05-27 | US_ITS ---
EXAMINATION: US arterial ankle brachial ind DATE: 05/27/2024 15:32 INDICATION: Other specified soft tissue disorders. TECHNIQUE: Segmental pressures and plethysmographic and Doppler waveforms of the brachial and lower e xtremity arteries were obtained. COMPARISON: None. FINDINGS: Right and left brachial artery pressures of 106 mm Hg and 107 mm Hg, respectively, are concordant (no rmal difference <= 30 mmHg). The right ankle-brachial index (LEI) is 1.38 (normal >= 0.9-1.0). The right great toe-brachial index (TBI) is 0.82 (normal >= 0.65). Arterial Doppler waveforms are triphasic in posterior tibial artery a nd biphasic in dorsalis pedis The left LEI is 1.46. The left TBI is 0.90. Arterial Doppler waveforms are triphasic at the ankle. IMPRESSION: 1. No significant arterial occlusive disease. Reviewed, dictated and finalized at location A.
== END 2024-05-27 14:07 | disposition home or self-care (01) ==
LOC: ANHIMG 14:07
PROVIDERS: PCP Internal Medicine; Visit Provider Clinical Nurse Specialist
DX: M79.89 Other specified soft tissue disorders (principal)
CPT/HCPCS: 93922

== ENCOUNTER 2024-09-28 09:17 | Outpatient (CLI) | payer MEDICARE, OTHER, SELFPAY ==
[2024-09-28 10:59] LABS: Basophils Percent Auto 0.6 % (0.2-1.2); Eosinophils Absolute Auto 0.1 K/mm3 (0-0.3); Eosinophils Percent Auto 2.3 % (0-4.4); Hematocrit 43.3 % (42.0-52.0); Hemoglobin 14.4 g/dL (14.0-18.0); Immature Granulocyte Absolute 0.02 K/mm3 (0.00-0.031); Immature Granulocyte Percent A 0.3 % (0-0.5); Lymphocytes Absolute Auto 2.57 K/mm3 (0.9-3.2); Lymphocytes Percent Auto 41.5 % (18.3-44.2); Mean Corpuscular HGB Conc 33.3 g/dl (32-36); Mean Corpuscular Hemoglobin 30.4 pg (26-34); Mean Corpuscular Volume 91.4 fl (80-100); Mean Platelet Volume 9.9 fl (7.4-10.4); Monocytes Absolute Auto 0.8 K/mm3 (0.1-0.6); Monocytes Percent Auto 12.4 % (2.6-8.5); Neutrophils Absolute Auto 2.7 K/mm3 (1.3-6.7); Neutrophils Percent Auto 42.9 % (45.5-73.1); Platelet Count Result 210 k/mm3 (150-375); Red Blood Count 4.74 M/mm3 (4.6-6.20); Red Cell Distribution Width 13.5 % (11.5-14.5); White Blood Count 6.2 K/mm3 (4.5-10.0)
[2024-09-28 11:08] LABS: Alanine Aminotransferase 21 U/L (6-50); Albumin Level 4.1 g/dL (3.5-5.1); Alkaline Phosphatase 49 U/L (38-126); Anion Gap 5 mmol/L (4-12); Aspartate Amino Transferase 24 U/L (17-59); Bilirubin,Total 1.2 mg/dL (0.2-1.3); Blood Urea Nitrogen 15 mg/dL (9-20); Calcium 8.8 mg/dL (8.4-10.2); Carbon Dioxide 33 mmol/L (22-30); Chloride 102 mmol/L (98-107); Cholesterol 146 mg/dL (0-200); Estimated Glomerular Filt Rate > 60; Glucose 95 mg/dL (65-110); HDL Direct 44 mg/dL; Potassium 3.9 mmol/L (3.4-5.0); Sodium 140 mmol/L (137-145); Triglycerides 58 mg/dL (<150)
[2024-09-28 11:19] LABS: LDL Cholesterol Direct 72 mg/dL
[2024-09-28 11:39] LABS: Prostate Specific Antigen 0.8 ng/mL (< OR = 4.0)
[2024-09-28 12:04] LABS: Hemoglobin A1C 5.8 % (<5.7)
== END 2024-09-28 09:18 | disposition home or self-care (01) ==
LOC: ANHLAB 09:20
PROVIDERS: PCP Internal Medicine; Visit Provider Nurse Practitioner
DX: Z12.5 Encounter for screening for malignant neoplasm of prostate (principal); I10 Essential (primary) hypertension; R73.03 Prediabetes; R73.9 Hyperglycemia, unspecified; J30.2 Other seasonal allergic rhinitis; R07.89 Other chest pain; G47.9 Sleep disorder, unspecified
CPT/HCPCS: 36415; 80053; 80061; 83036; 84153; 84443; 85025; G0103

== ENCOUNTER 2024-09-30 10:33 | Outpatient (CLI) | payer MEDICARE, OTHER, SELFPAY ==
--- NOTE | ~2024-09-30 | XR_ITS ---
EXAMINATION: XR pelvis 1-2V DATE: 09/30/2024 11:04 INDICATION: Low back pain. TECHNIQUE: An anteroposterior view of the pelvis was obtained. COMPARISON: None. FINDINGS: Bone alignment is normal. No fracture. There is mild osteoarthritis of the hips. There is m oderate lumbar spondylosis. IMPRESSION: 1. Mild osteoarthritis of the hips. Reviewed, dictated and finalized at location A. ATION CLERK
== END 2024-09-30 10:34 | disposition home or self-care (01) ==
PROVIDERS: PCP Internal Medicine; Visit Provider Clinical Nurse Specialist
DX: M16.0 Bilateral primary osteoarthritis of hip (principal)
CPT/HCPCS: 72170

== ENCOUNTER 2025-08-29 07:35 | Outpatient (CLI) | payer MEDICARE, OTHER, SELFPAY ==
--- OUTSIDE RECORDS SUMMARY | 2025-08-28 10:20 | XMS_ITS | Encounter Summary ---
Author Organization [facility] Address [address] [address] Care Team Providers Care Platinum And Palladium Kettle Tender Name Role Phone Juan Pablo Narvaez DO Primary Care Provider [phone] Reason for Visit * Reason Comments Annual Follow-Up Encounter Details Date Type Department Care Team (Late st Contact Info) Description 08/28/2025 10:20 AM CDT Office Visit [facility] - Dermatology [address] [place] [address], [facility] [place] [address] Steph Nelson MD [address] [place] [address] [address] DEPT OF DERMATOLOGY [place], [place] [id number] Neoplasm of unspecified behavior of bone, soft tissue, and skin (Primary Dx); Multiple benign melanocytic nevi of both upper extremities, both lower extremities, and trunk; Mccauley angioma; Actinic keratosis; Lentigines; Seborrheic keratoses; Hx of nonmelanoma skin cancer Social History Tobacco Use Types Packs/Day Years Used Date Smoking Tobacco: Never Smokeless Tobacco: Never Alcohol Use Standard Drinks/Week Comments Yes 0 (1 standard drink = 0.6 oz pur e alcohol) Sex and Gender Information Value Date Recorded Sex Assigned at Not on file Legal Sex Male 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 Please follow these instructions as we discussed today: 1) If you want cyst removal, please schedule with Dr. Nelson for cyst excision Follow up in 6 months SHAVE BIOPSY At your appointment today, we took a small sample of your skin for further evaluation by a pathologist through a procedure called a shave biopsy. We typically receive the results within 7-10 days, atwhich time we will contact you with the results. Wound care after shave biopsy If bleeding occurs, hold firm pressure on the area for ten minutes with no peeking. Keep your bandage on and keep the wound dry until tomorrow, after which you may remove the bandage and shower as usual. Gently clean the wound twice a day with mild soap and water and pat dry. After each cleaning, apply plain petroleum jelly (Vaseline) or Aquaphor and a bandage if needed. Try not to let a scab form. If a scab forms, soak the scab with warm water several times per day to gently remove it. Continue wound care until the area is healed. Should you notice increasing redness, swelling, pain, fever or drainage, please contact the clinic: - [facility]: [phone] - [facility]: [phone] - After hours or weekends: - ask to speak with the dermatology resident extension service specialist documented in this encounter Progress Notes * Beba Jackson MD - 08/28/2025 10:13 AM CDT Chief Complaint Patient presents with Annual Follow-Up HPI: Yobany Summers is a 74 year old male who presents for follow up. LV (08/2023) Concerns: 1. Full body skin exam, would like all spots checked out Spots of concern: yes Location: back Duration: months Symptoms: funny look, tender Prior treatments: none Personal history of skin cancer: 08/2023 BCC, left shoulder s/p C&C 12/2020 smBCC L midline back s/p C&C 12/2020 nBCC L upper back s/p C&C - BCC x2 R upper back, mid upper back, s/p EDC - BCC R lateral leg, s/p EDC - JMP R upper back, s/p excision - smBCC R shoulder, s/p EDC BCC x2 of scalp s/p Mohs 2012 Physical exam: Skin exam was conducted to include the scalp, face, lips, conjunctiva, ears, neck, chest, abdomen, back, upper extremities, and lower extremities and was notable for the following: - pink scaly, gritty macules with poorly defined borders on right arm x2, right hand x1, left arm x2, left hand x1, scalp x2 right shoulder x1. - multiple mccauley red 2-4 mm papules on trunk and extremities - multiple 2-6 mm lim brown macules and papules and skin colored papules on face, trunk, and extremities - many lim to brown waxy stuck-on papules on trunk - multiple lim to light brown macules on face, shoulders and arms in a photo- distributed pattern - well-healed scars in area of previous skin cancers without evidence of recurrence - dome-shaped, firm mobile skin-colored SQ nodule with a central punctum on the central back x2 -[place] pearly papule with ulceration on right postauricular Assessment/Plan: Neoplasm of uncertain behavior of skin - location: right postauricular - ddx: BCC - shave biopsy (see procedure note) - wound care instructions provided - will call patient with biopsy results. If intervention is indicated, will make arrangements at that time Actinic keratosis right arm x2, right hand x1, left arm x2, left hand x1, scalp x2, right shoulder x1. - counseled on diagnosis, etiology, natural disease course, including pre- malignant nature of lesions and association with sun exposure - 9 lesions treated today with LN2 - wound care instructions provided History of non-melanoma skin cancer - no evidence of recurrence - routine TBSEs Epidermal inclusion cyst - Benign, reassured patient - discussed excision as definitive treatment, reviewed risks (including expected scarring, recurrence and slight risk of bleeding, infection a/w the procedure) and benefits of procedure - pt return for excision in surgery clinic with Dr. Nelson Seborrheic keratoses - Discussed benign nature - No treatment necessary Lentigines -Explained benign nature, is marker of UV damage -Advised pt on consistent sunscreen use (SPF > 30, UVA + UVB). 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 Often increase in number with age. -No treatment necessary at this time Multiple benign melanocytic nevi - benign, reassurance - broad-spectrum SPF30+ sunscreen daily Return to clinic in 6 months for full body skin exam The above patient was seen and examined with the attending physician Dr. Nelson who agrees with the assessment and plan. Beba Virk MD [facility] Dermatology Resident Cosigned by Steph Nelson MD at 08/28/2025 10:55 AM CDT Associated attestation - Steph Nelson MD - 08/28/2025 10:55 AM CDT Attending Physician Supervisory Note I have seen and examined the patient with the resident and I agree with the findings and plan of care as documented by the resident. Date of Service : 08/28/2025 Steph Nelson MD Professor Department of Dermatology [facility] documented in this encounter Procedure Notes * Beba Jackson MD - 08/28/2025 10:47 AM CDTAssociated Order(s): PROC DESTRUCTION OF PRE-MALIGNANT LESIONS Procedure(s): RI DESTROY PREMALIG LESION, 1ST LESION; RI DESTROY PREMALIG LESION, 2-14 Pre-Procedure Diagnose(s): Actinic keratosis Diagnosis and treatment options discussed. Cryotherapy (Liquid Nitrogen) to 9 lesions for 4-6 seconds each. Number of cycles: 1. Wound care reviewed. Beba Virk MD [facility] Dermatology Resident Cosigned by Steph Nelson MD at 08/28/2025 10:55 AM CDT Associated attestation - Steph Nelson MD - 08/28/2025 10:55 AM CDT A procedure was performed. I present for the keane portion of the procedure and was always immediately available. Date of Service : 08/28/2025 Steph Nelson MD * Beba Jackson MD - 08/28/2025 10:46 AM CDTAssociated Order(s): PROC BIOPSY OF SKIN LESION Procedure(s): RI TANGNTL BX SKIN SINGLE LES Pre-Procedure Diagnose(s): Neoplasm of unspecified behavior of bone, soft tissue, and skin Risks, benefits and alternatives to shave biopsy were discussed with the patient. Verbal consent was obtained. Encounter Diagnoses Name Primary? Neoplasm of unspecified behavior of bone, soft tissue, and skin Yes Multiple benign melanocytic nevi of both upper extremities, both lower extremities, and trunk Mccauley angioma Actinic keratosis Lentigines Seborrheic keratoses Hx of nonmelanoma skin cancer Location: right postauricular Skin prep: Alcohol Anesthesia: Lidocaine 1% with epinephrine Hemostasis: Aluminum chloride Dressing and wound care discussed. Specimen(s) placed in a patient labeled container and sent to [facility]. Beba Virk MD [facility] Dermatology Resident Cosigned by Steph Nelson MD at 08/28/2025 10:55 AM CDT Associated attestation - Steph Nelson MD - 08/28/2025 10:55 AM CDT A procedure was performed. I present for the keane portion of the procedure and was always immediately available. Date of Service : 08/28/2025 Steph Nelson MD documented in this encounter Plan of Treatment Upcoming Encounters Date Type Department Care Team (Late st Contact Info) Description 02/26/2026 9:40 AM CDT Office Visit [facility] - Dermatology [address] [place] [address] [place] [address] Steph Nelson MD [address] [place] [address] [address] [place] [address] Pending Results Name Type Priority Associated Diagnoses Date /Time DERMATOPATHOLOGY Pathology Cytology Routine Neoplasm of unspecified behavior of bone, soft tissue, and skin 08/28/2025 10:33 AM CDT documented as of this encounter Procedures Procedure Name Priority Date/Time Associated Diagnosis Comments RI DESTROY PREMALIG LESION, 2-14 Routine 08/28/2025 10:47 AM CDT Actinic keratosis RI DESTROY PREMALIG LESION, 1ST LESION Routine 08/28/2025 10:47 AM CDT Actinic keratosis RI TANGNTL BX SKIN SINGLE LES Routine 08/28/2025 10:46 AM CDT Neoplasm of unspecified behavior of bone, soft tissue, and skin documented in this encounter Results * RI DESTROY PREMALIG LESION, 1ST LESION, RI DESTROY PREMALIG LESION, 2-14 (08/28/2025 10:47 AM CDT) Narrative Steph Nelson MD - 08/28/2025 10:47 AM CDT Steph Nelson MD 08/28/2025 10:55 AM Diagnosis and treatment options discussed. Cryotherapy (Liquid Nitrogen) to 9 lesions for 4-6 seconds each. Number of cycles: 1. Wound care reviewed. Beba Virk MD [facility] Dermatology Resident us Steph Nelson MD PROCEDURE/MINOR SURGICAL ORDE VENTURA Final Result * RI TANGNTL BX SKIN SINGLE LES (08/28/2025 10:46 AM CDT) Narrative Steph Nelson MD - 08/28/2025 10:46 AM CDT Steph Nelson MD 08/28/2025 10:55 AM Risks, benefits and alternatives to shave biopsy were discussed with the patient. Verbal consent was obtained. Encounter Diagnoses Name Primary? Neoplasm of unspecified behavior of bone, soft tissue, and skin Yes Multiple benign melanocytic nevi of both upper extremities, both lower extremities, and trunk Mccauley angioma Actinic keratosis Lentigines Seborrheic keratoses Hx of nonmelanoma skin cancer Location: right postauricular Skin prep: Alcohol Anesthesia: Lidocaine 1% with epinephrine Hemostasis: Aluminum chloride Dressing and wound care discussed. Specimen(s) placed in a patient labeled container and sent to [facility]. Beba Virk MD [facility] Dermatology Resident [facility] Karishma Nelson MD PROCEDURE/MINOR SURGICAL ORDE VENTURA Final Result documented in this encounter Visit Diagnoses Diagnosis Neoplasm of unspecified behavior of bone, soft tissue, and skin- Primary Multiple benign melanocytic nevi of both upper extremities, both lower extremities, and trunk Mccauley angioma Nevus, non-neoplastic Actinic keratosis Lentigines Other dyschromia Seborrheic keratoses Hx of nonmelanoma skin cancer Personal history of other malignant neoplasm of skin documented in this encounter Care Teams Platinum And Palladium Kettle Tender Relationship Specialty Start Date End Date Juan Pablo Narvaez DO PCP - General 04/23/18 documented as of this encounter
--- OUTSIDE RECORDS SUMMARY | 2025-08-29 07:39 | XMS_ITS | Clinical Summary ---
Author Organization [facility] Address [address] [place] [address] Care Team Providers Care Operations Supervisor Chemical Cleaning Name Role Phone Juan Pablo Narvaez DO Primary Care Provider Source Comments [facility],non-owned Affiliates and Associated Physician Practices is amultiple site organization consisting of ambulatory clinics and hospital sitesin [place], [place], [place] and [place]. This disclosure is being madepursuant to the Care Everywhere program and may not contain all information available regarding this patient. Last updated 18.[facility] Allergies No known active allergies Medications * Be aware that medications may not be up to date on this document. Alwaysverify current medications with the patient. omeprazole (PRILOSEC) 20 MG capsule Take 1 (one) capsule by mouth every other day 08/16/2018 Active SYNTHROID 50 MCG tablet Take 1 (one) tablet by mouth once daily 08/16/2018 Active [place]-3 Fatty Acids (FISH OIL) 500 MG capsule Take 4,000 (four thousand) mg by mouth once daily Active Cholecalciferol (VITAMIN D PO) Take 25 mcg by mouth once daily Active melatonin 1 MG tablet Take 5 (five) tablets by mouth at bedtime Active Multiple Vitamins-Minera ls (CENTRUM SILVER ULTRA MENS) tablet Take 1 (one) tablet by mouth daily with food Active loratadine (Claritin) 10 MG tablet Take 1 (one) tablet by mouth once daily as needed Active fluticasone propionate (FLONASE) 50 MCG/ACT nasal spray [place] 1 (one) spray into the nose as needed Active neomycin-polymy daquan-dexameth (Maxitrol) ophthalmic suspension 10/15/2021 Active fluocinonide (Lidex) 0.05 % ointmentIndicat ions:Neoplasm of uncertain behavior of skin Apply to right lower leg twice daily. 30 days supply. 60 g 01/19/2023 Active ketoconazole (Nizoral) 2 % shampooIndicati ons:Other seborrheic dermatitis Use as wash to scalp, up to daily, lather it on for 3-5 minutes before washing off. 30 DS 240 mL 11 01/19/2023 Active Active Problems Problem Noted Date Diagnosed Date Leg edema, left 01/06/2022 Actinic skin damage 01/06/2022 Multiple benign melanocytic nevi of upper extremity, lower extremity, and trunk 07/01/2021 Mccauley angioma 07/01/2021 Other seborrheic keratosis 07/01/2021 Neoplasm of uncertain behavior of skin Assessment & Plan (12/26/2020 10:11 AM ANIMAL TECH): 2 lesions concerning for BCC biopsied today- upper midline back, L back L gnosticist concerning for SCCIS vs ISK - Sent for path - Plan for EDC for back lesions - May need Mohs for L gnosticist depending on path - Wound care instructions given Lentigines 12/26/2020 Assessment & Plan (12/26/2020 10:11 AM ANIMAL TECH): - Sun protection discussed 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 - S/p cryo today to 4 lesions BCC (basal cell carcinoma of skin) Encounters Date Type Department Care Team Description 08/28/2025 10:20 AM CDT Office Visit [facility] - Dermatology [address] [facility] [place] [id number] Steph Nelson MD Neoplasm of unspecified behavior of bone, soft tissue, and skin (Primary Dx); Multiple benign melanocytic nevi of both upper extremities, both lower extremities, and trunk; Mccauley angioma; Actinic keratosis; Lentigines; Seborrheic keratoses; Hx of nonmelanoma skin cancer 08/28/2025 Travel from Last 3 Months Immunizations Immunization Administration Dates Next Due INFLUENZA VACCINE, TRIV. (AF LURIA, FLUZONE TRIVALENT; 6MO+) (IIV3) 10/25/2015 Covid Moderna primary monova lent 12+ yr 0.5mL 02/12/2021,01/10/2021 FLU VACCINE TRI IIV3 SPLIT P F IM (FLUVIRIN) 12/12/2016 INFLUENZA VACCINE 10/06/2021, 0,09/22/2019,2018 INFLUENZA VACCINE, HIGH-DOSE , QUADR. (FLUZONE HIGH-DOSE QUADRIVALENT; 65Y+), 0.7 ML (HD-IIV4) 09/11/2020,09/22/2019 INFLUENZA VACCINE, QUADR. (F LUZONE; FLULAVAL; FLUARIX; AFLURIA QUADRIVALENT; 6MO+), 0.5 ML (IIV4) 09/14/2018,08/03/2017 PNEUMOCOCCAL PPSV23 12/12/2016 Pneumococcal Pcv13 Conj 10/25/2015 TDAP (7yrs+) 08/03/2017 Family History Medical History Relation Name Comments None Known Brother None Known Father None Known Maternal Aunt None Known Maternal Grandfather None Known Maternal Grandmother None Known Maternal Uncle Cancer - Skin, Non Melanoma Mother None Known Other None Known Paternal Aunt None Known Paternal Grandfather None Known Paternal Grandmother None Known Paternal Uncle None Known Sister Asthma Neg Hx CVA Neg Hx Cancer - Breast Neg Hx Cancer - Other Neg Hx Cancer - Skin, Melanoma Neg Hx Eczema Neg Hx Hemophilia Neg Hx Psoriasis Neg Hx Relation Name Status Comments Brother Father Maternal Aunt Maternal Grandfather Maternal Grandmother Maternal Uncle Mother Other Paternal Aunt Paternal Grandfather Paternal Grandmother Paternal Uncle Sister Social History Tobacco Use Types Packs/Day Years Used Date Smoking Tobacco: Never Smokeless Tobacco: Never Tobacco Cessation:Counseling Given: Not Answered Alcohol Use Standard Drinks/Week Comments Yes 0 (1 standard drink = 0.6 oz pur e alcohol) Sex and Gender Information Value Date Recorded Sex Assigned at Not on file Legal Sex Male 6:21 AM ANIMAL TECH Gender Identity Not on file Sexual Orientation Not on file Last Filed Vital Signs Vital Sign Reading Time Taken Comments Blood Pressure - - Pulse - - Temperature - - Respiratory Rate - - Oxygen Saturation - - Inhaled Oxygen Concentration - - Weight 99.8 kg (220 lb) 02/22/2019 1:44 PM CDT Height 193 cm (6' 4) 02/22/2019 1:44 PM CDT Body Mass Index 26.78 02/22/2019 1:44 PM CDT Plan of Treatment Upcoming Encounters Date Type Department Care Team (Late st Contact Info) Description 02/26/2026 9:40 AM CDT Office Visit [facility] - Dermatology [address] [place] [address], [facility] [place] [address] Steph Nelson MD [address] [place] [address] [address] [place] [address] Health Maintenance Due Date Last Done Comments COLOGUARD (AGES 45-75) - COLON CA SCREENING 1949 COLON MONITORING 1949 COLONOSCOPY - COLON CA SCREENING 1949 CT COLONOGRAPHY - COLON CA SCREENING 1950 Colorectal Cancer Screening 1949 FIT - COLON CA SCREENING 1949 FLEX SIG - COLON CA SCREENING 1949 LIPID TESTING 1949 MEDICARE AWV 12 MONTHS 1949 HEPATITIS C SCREENING 10/18/1967 ZOSTER VACCINE (1 of 2) 1999 Respiratory Syncytial Virus (RSV) Vaccine Pt: or over 60 yrs (1 - 1-dose 75+ series) 2024 DEPRESSION SCREENING 11/23/2024 COVID-19 VACCINE (3 - 2024- season) 2025 02/12/2021, 01/10/2021 INFLUENZA VACCINE (#1) 2025 , 09/11/2020, 09/11/2020, Additional history exists DTAP/TDAP/TD VACCINES (2 - Td or Tdap) 08/03/2027 08/03/2017 PNEUMOCOCCAL VACCINE 50+ Completed 12/12/2016, 1201/2015 HEPATITIS B VACCINE Aged Out No longe r eligible based on patient's age to complete this topic HIB VACCINE Aged Out No longer eligi ble based on patient's age to complete this topic HPV VACCINE Aged Out No longer eligi ble based on patient's age to complete this topic MENINGOCOCCAL (Group B) VACCINE SHARED DECISION-MAKING Aged Out No longer eligible based on patient's age to complete this topic MENINGOCOCCAL GROUPS A/C/Y/W VACCINE Aged Out No longer eligible based on patient's age to complete this topic Procedures Procedure Name Priority Date/Time Associated Diagnosis Comments NM DESTROY PREMALIG LESION, 2-14 Routine 08/28/2025 10:47 AM CDT Actinic keratosis NM DESTROY PREMALIG LESION, 1ST LESION Routine 08/28/2025 10:47 AM CDT Actinic keratosis NM TANGNTL BX SKIN SINGLE LES Routine 08/28/2025 10:46 AM CDT Neoplasm of unspecified behavior of bone, soft tissue, and skin from Last 3 Months Results * NM DESTROY PREMALIG LESION, 1ST LESION, NM DESTROY PREMALIG LESION, 2-14 (08/28/2025 10:47 AM CDT) Narrative Steph Nelson MD - 08/28/2025 10:47 AM CDT Steph Nelson MD 08/28/2025 10:55 AM Diagnosis and treatment options discussed. Cryotherapy (Liquid Nitrogen) to 9 lesions for 4-6 seconds each. Number of cycles: 1. Wound care reviewed. Beba Virk MD [facility] Dermatology Resident Steph Nelson MD PROCEDURE/MINOR SURGICAL ORDE RABLES Final Result * NM TANGNTL BX SKIN SINGLE LES (08/28/2025 10:46 [...] a patient labeled container and sent to [facility]. Beba Virk MD [facility] Dermatology Resident Steph Nelson MD PROCEDURE/MINOR SURGICAL ORDE RABLES Final Result from Last 3 [place] [address] [place] [address] [facility] MEDICARE [facility] Care Teams Operations Supervisor Chemical Cleaning Relationship Specialty Start Date End Date Juan Pablo Narvaez DO PCP - General 04/23/18
--- OUTSIDE RECORDS SUMMARY | 2025-08-29 07:39 | XMS_ITS | Encounter Summary ---
Author Organization [facility] Address [address] [place] [address] Care Team Providers Care Macroeconomics Professor Name Role Phone Juan Pablo Narvaez DO Primary Care Provider [phone] Encounter Details Date Type Department Care Team (Latest Contact Info) Description 08/28/2025 Travel Social History Tobacco Use Types Packs/Day Years Used Date Smoking Tobacco: Never Smokeless Tobacco: Never Alcohol Use Standard Drinks/Week Comments Yes 0 (1 standard drink = 0.6 oz pur e alcohol) Sex and Gender Information Value Date Recorded Sex Assigned at Not on file 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 Gender Identity Not on file Sexual Orientation Not on file documented as of this encounter Plan of Treatment Upcoming Encounters Date Type Department Care Team (Late st Contact Info) Description 02/26/2026 9:40 AM CDT Office Visit [facility] - Dermatology [address] [place] [address], [facility] [place] [address] Steph Nelson MD [address] [place] [address] [address] [place] [address] documented as of this encounter Visit Diagnoses Not on filedocumented in this encounter Care Teams Macroeconomics Professor Relationship Specialty Start Date End Date Juan Pablo Narvaez DO PCP - General 04/23/18 documented as of this encounter
--- OUTSIDE RECORDS SUMMARY | 2025-08-29 07:39 | XMS_ITS | Clinical Summary ---
Author Organization [facility] Address [address] [place] [address] Phone Care Team Providers Care Security Associate Name Role Phone Unavailable Primary Care Provider Unavailabl e Social History Tobacco Use Types Packs/Day Years Used Date Smoking Tobacco: Never Assessed Sex and Gender Information Value Date Recorded Sex Assigned at Not on file Legal Sex Male 12:56 PM MOVIE OPERATOR Gender Identity Not on file Sexual Orientation Not on file Plan of Treatment Health Maintenance Due Date Last Done Comments Hepatitis C Virus (HCV) Screening 1950 TdaP Immunization 1949 Cologuard 1994 Colonoscopy 1994 Colorectal Cancer Screening 1994 Immunochemical Fecal Occult Blood 1994 Pneumococcal Immunization (5 0+ years) (1 of 1 - PCV) 1999 Zoster Immunization (1 of 2) 1999 Respiratory Syncytial Virus (RSV) Immunization (Adult) (1 - 1-dose 75+ series) 2024 Influenza Immunization (#1) 07/24/202508/24, 09/22/2019 SARS-COV-2 Immunization ( season) 2025 Hepatitis B Immunization Aged Out No longer eligible based on patient's age to complete this topic Human Papillomavirus (HPV) Immunization Aged Out No longer eligible b ased on patient's age to complete this topic Meningococcal Immunization (ACWY) Aged Out No longer eligible b ased on patient's age to complete this topic Rotavirus Immunization Aged Out No lo nger eligible based on patient's age to complete this topic
--- OUTSIDE RECORDS SUMMARY | 2025-08-29 07:39 | XMS_ITS | Clinical Summary ---
Author Organization [facility] [address] Address [address] [place] [address] Care Team Providers Care Credit Charge Authorizer Name Role Phone Juan Pablo Narvaez DO Primary Care Provider [phone] Allergies No known active allergies Medications Synthroid 50 mcg tablet 10/10/2022 Active omeprazole (PriLOSEC) 20 mg capsule 10/10/2022 Active oxybutynin XL (DITROPAN-XL) 5 mg 24 hr tablet 10/23/2022 Act kori famotidine (PEPCID) 10 mg tablet Take 1 tablet (10 mg total) by mouth 2 (two) times a day Patient is taking twice a week Active fish pba-hqzxt-5-vit C-vit E 2,000-650-12 mg/2.5 gram emulsion in packet Take by mouth Active vitamin D3-vitamin K2 25 mcg (1,000 unit)-90 mcg tablet,disinteg rating Take by mouth Active upscyqlw-okm-hx lic acid-vit K 400-80 mcg capsule Take by mouth Active cetirizine (ZyrTEC) 10 mg chewable tablet Take 1 tablet (10 mg total) by mouth daily Active melatonin 5 mg tablet Active Active Problems Problem Noted Date Diagnosed Date Edema of left lower extremity 06/30/2024 Assessment & Plan (06/30/2024 10:59 AM CDT): Impression: Mild left lower extremity edema is noted on exam. Patient recently started utilizing compression stockings for 1-2 months. He denies any history of DVTs/PEs or symptoms of claudication, ischemic rest pain or ulcerations. No discoloration noted to left lower extremity. He has a history of being placed in a cast which was removed several times during treatment due to extreme edema. Plan: Recommend patient to continue utilizing compression stockings and elevation for edema control. -ultrasound of lower extremity obtained from [facility] which showed normal ABIs. -recommend left lower extremity venous duplex to re-evaluate if patient potentially has a chronic DVT due to being placed in cast and having severe edema. This would determine potential cause of edema. Will call with results. -discussed with the patient if no improvement with compression stockings and elevation, he may be evaluated for compression pumps for further assistance of edema control. -patient to follow-up on an as-needed basis. Acquired hypothyroidism 06/30/2024 Assessment & Plan (06/30/2024 9:26 AM CDT): Impression: Chronic and controlled. 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 Gender Identity Not on file Sexual Orientation Not on file Obstetrics History Last Filed Vital Signs Vital Sign Reading Time Taken Comments Blood Pressure 143/73 06/29/2024 10:57 AM CDT Pulse 74 06/29/2024 10:57 AM CDT Temperature 37 C (98.6 F) 05/13/2024 11:59 AM CDT Respiratory Rate 20 05/13/2024 11:59 AM CDT Oxygen Saturation 96% 06/29/2024 10:57 AM CDT Inhaled Oxygen Concentration - - Weight 100.2 kg (221 lb) 05/13/2024 11:59 AM CDT Height 190.5 cm (6' 3) 05/13/2024 11:59 AM CDT Body Mass Index 27.62 05/13/2024 11:59 AM CDT Plan of Treatment Health Maintenance Due Date Last Done Comments Colon Cancer Screening-Colonoscopy 1949 Depression Screening 1949 Fall Risk Assessment 1949 Hepatitis C Screening 1949 Hepatitis B Screening 1967 Zoster Vaccine (1 of 2) 1999 Abdominal Aortic Aneurysm (A AA) Screen 2014 Well Visit 65+ 2014 Covid-19 Vaccine (2024-2 6 season) 2025 08/25/2022, 10/10/2021, 02/12/2021, Additional history exists Influenza Vaccine (#1) 2025 , 10/07/2021, 10/06/2021, Additional history exists DTaP/Tdap/Td Vaccine (2 - Td or Tdap) 08/03/2027 08/03/2017 Pneumococcal vaccine 65+ Completed 12/12/2016, 01/2015 Insurance MEDICARE [employer] MEDICARE FOR LIFE Care Teams Credit Charge Authorizer Relationship Specialty Start Date End Date Juan Pablo Narvaez DO PCP - General Internal Medicine 11/10/18
[2025-08-29 08:09] LABS: Hematocrit 43.4 % (42.0-52.0); Hemoglobin 14.6 g/dL (14.0-18.0); Immature Granulocyte Percent A 0.5 % (0-0.5); Lymphocytes Absolute Auto 1.98 K/mm3 (0.9-3.2); Mean Corpuscular HGB Conc 33.6 g/dl (32-36); Mean Corpuscular Hemoglobin 29.9 pg (26-34); Mean Corpuscular Volume 88.9 fl (80-100); Nucleated Red Blood Cells Absolute Auto 0.000 K/mm3 (0.0-0.012); Nucleated Red Blood Cells Perc 0.0 % (0.0-0.2); Platelet Count Result 210 k/mm3 (150-375); Red Blood Count 4.88 M/mm3 (4.6-6.20); White Blood Count 5.9 K/mm3 (4.5-10.0)
[2025-08-29 08:25] LABS: Hemoglobin A1C 5.8 % (<5.7)
[2025-08-29 08:36] LABS: Alanine Aminotransferase 20 U/L (6-50); Albumin Level 4.2 g/dL (3.5-5.1); Alkaline Phosphatase 60 U/L (38-126); Anion Gap 6 mmol/L (4-12); Aspartate Amino Transferase 25 U/L (17-59); Bilirubin,Total 1.5 mg/dL (0.2-1.3); Blood Urea Nitrogen 12 mg/dL (9-20); Calcium 8.7 mg/dL (8.4-10.2); Carbon Dioxide 29 mmol/L (22-30); Chloride 103 mmol/L (98-107); Cholesterol 140 mg/dL (0-200); Estimated Glomerular Filt Rate > 60; Glucose 106 mg/dL (65-110); HDL Direct 45 mg/dL; Potassium 3.9 mmol/L (3.4-5.0); Sodium 138 mmol/L (137-145); Total Protein 6.6 g/dL (6.3-8.2); Triglycerides 59 mg/dL (<150)
[2025-08-29 09:13] LABS: Prostate Specific Antigen 1.0 ng/mL (< OR = 4.0); Thyroid Stimulating Hormone 3.450 uIU/mL (0.465-4.680)
== END 2025-08-29 07:36 | disposition home or self-care (01) ==
LOC: ANHLAB 07:37
PROVIDERS: PCP Internal Medicine; Visit Provider Nurse Practitioner
DX: R73.03 Prediabetes (principal); I10 Essential (primary) hypertension; E03.9 Hypothyroidism, unspecified; Z13.29 Encounter for screening for other suspected endocrine disorder; Z12.5 Encounter for screening for malignant neoplasm of prostate
CPT/HCPCS: 36415; 80053; 80061; 83036; 84153; 84443; 85025; G0103

== ENCOUNTER 2025-09-06 06:37 | Outpatient (CLI) | payer MEDICARE, OTHER, SELFPAY ==
--- NOTE | ~2025-09-06 | CT_ITS ---
EXAMINATION: CT brain wo con DATE: 09/06/2025 06:49 INDICATION: Tremor, unspecified. TECHNIQUE: Computed tomography (CT) of the head was performed without intravenous contrast. The mA was adjusted according to patient size. Iterative reconstruction technique was employed. The dose-length product was 681.00 mGy-cm. COMPARISON: Head CT 05/30/2009 FINDINGS: There are scattered areas of low attenuation in the cerebral white matter. There is no intracranial hemorrhage, acute infarction, or abnormal intracranial mass lesion. The ventricles are normal in size. The orbits are normal. There are implants adjacent to the ocular globes. The mastoid air cells are normal. There is mild mucosal thickening in the paranasal sinuses. IMPRESSION: 1. Moderate nonspecific cerebral white matter disease, which likely represents chronic small vessel ischemic disease. Reviewed, dictated and finalized at location E.
--- OUTSIDE RECORDS SUMMARY | 2025-09-06 06:40 | XMS_ITS | Clinical Summary ---
Author Organization [facility] Address [address] [place] [address] Phone Care Team Providers Care Reel Blade Bender Furnace Tender Name Role Phone Unavailable Primary Care Provider Unavailabl e Social History Tobacco Use Types Packs/Day Years Used Date Smoking Tobacco: Never Assessed Sex and Gender Information Value Date Recorded Sex Assigned at Not on file Legal Sex Male 12:56 PM BILLING TYPIST Gender Identity Not on file Sexual Orientation [...]
--- OUTSIDE RECORDS SUMMARY | 2025-09-06 06:40 | XMS_ITS | Clinical Summary ---
Author Organization [facility] Address [address] [place] [address] Care Team Providers Care Merchant Tailor Name Role Phone Juan Pablo Narvaez DO Primary Care Provider Source Comments [facility],non-owned Affiliates and Associated Physician Practices is amultiple site organization consisting of ambulatory clinics and hospital sitesin [place], [place], [place] and [place]. This disclosure is being madepursuant to the Care Everywhere program and may not contain all information available regarding this patient. Last updated 18.[facility] Allergies No known active allergies Medications * Be aware that medications may not be up to date on this document. Alwaysverify current medications with the patient. omeprazole (PRILOSEC) 20 MG capsule Take 1 (one) capsule by mouth every other day 08/16/2018 Active SYNTHROID 50 MCG tablet Take 1 (one) tablet by mouth once daily 08/16/2018 Active [place]-3 Fatty Acids (FISH OIL) 500 MG capsule [...] fluticasone propionate (FLONASE) 50 MCG/ACT nasal spray [place] 1 (one) spray into the nose as [...] skin Assessment & Plan (12/26/2020 10:11 AM TURKEY CLEANER): 2 lesions concerning for BCC biopsied today- upper midline back, L back L scientologist concerning for SCCIS vs ISK - Sent for path - Plan for EDC for back lesions - May need Mohs for L scientologist depending on path - Wound care instructions given Lentigines 12/26/2020 Assessment & Plan (12/26/2020 10:11 AM TURKEY CLEANER): - Sun protection discussed 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 - S/p cryo today to 4 lesions BCC (basal cell carcinoma of skin) Encounters Date Type Department Care Team Description 09/04/2025 Travel 08/31/2025 Telephone [facility] - Dermatology [address] [place] [phone] Bart Fragoso MD Surgery Scheduling 08/30/2025 Results Follow-Up [facility] - Dermatology [address] [place] [address], [place] [address] Steph Nelson MD 08/28/2025 10:20 AM CDT Office Visit [facility] - Dermatology [address] [place] [phone] Steph Nelson MD Neoplasm of unspecified behavior [...] P F IM (FLUVIRIN) 12/12/2016 INFLUENZA VACCINE 10/06/2021,,09/22/2019,2018 INFLUENZA VACCINE, HIGH-DOSE , QUADR. (FLUZONE HIGH-DOSE [...] on file Legal Sex Male 6:21 AM TURKEY CLEANER Gender Identity Not on file Sexual Orientation [...] Care Team (Late st Contact Info) Description 09/14/2025 9:30 AM CDT Procedure visit [facility] - Dermatology [address] [place] [phone] Bart Fragoso MD [address] [place] [address] [place] [phone] 02/26/2026 9:40 AM CDT Office Visit [facility] - Dermatology [address] [place] [phone] Steph Nelson MD [address] [facility] [address] [place] [address] Health Maintenance Due Date Last Done Comments [...] DEPRESSION SCREENING 11/23/2024 COVID-19 VACCINE (3 - season) 2025 02/12/2021, 01/10/2021 INFLUENZA VACCINE (#1) 2025 , 09/11/2020, 09/11/2020, Additional history exists DTAP/TDAP/TD VACCINES (2 - Td or Tdap) 08/03/2027 08/03/2017 PNEUMOCOCCAL VACCINE 50+ Completed 12/12/2016, 12/0 01/2015 HEPATITIS B VACCINE Aged Out No longe [...] Procedure Name Priority Date/Time Associated Diagnosis Comments CA DESTROY PREMALIG LESION, 2-14 Routine 08/28/2025 10:47 AM CDT Actinic keratosis CA DESTROY PREMALIG LESION, 1ST LESION Routine 08/28/2025 10:47 AM CDT Actinic keratosis CA TANGNTL BX SKIN SINGLE LES Routine 08/28/2025 10:46 AM CDT Neoplasm of unspecified behavior of bone, soft tissue, and skin DERMATOPATHOLOGY Routine 08/28/2025 10:3 3 AM CDT Neoplasm of unspecified behavior of bone, soft tissue, and skin from Last 3 Months Results * CA DESTROY PREMALIG LESION, 1ST LESION, CA DESTROY PREMALIG LESION, 2-14 (08/28/2025 10:47 AM CDT) Steph Nuens MD - 08/28/2025 10:47 AM CDT Steph Nelson MD 08/28/2025 10:55 AM Diagnosis and treatment options discussed. Cryotherapy (Liquid Nitrogen) to 9 lesions for 4-6 seconds each. Number of cycles: 1. Wound care reviewed. Beba Virk MD [facility] Dermatology Resident us Steph Nelson MD PROCEDURE/MINOR SURGICAL ORDE VENTURA Final Result * CA TANGNTL BX SKIN SINGLE LES (08/28/2025 10:46 AM CDT) Steph Nunes MD - 08/28/2025 10:46 AM CDT Steph [...] a patient labeled container and sent to [facility]. Beba Virk MD [facility] Dermatology Resident us Steph Nelson MD PROCEDURE/MINOR SURGICAL ORDE RABLES Final Result * DERMATOPATHOLOGY (08/28/2025 10:33 AM CDT) Case Report Dermatopathology Report Case: [id number] Authorizing Provider: Steph Nelson MD Collected: 08/28/2025 10:33 AM Ordering Location: [facility] - Received: 08/28/2025 10:33 AM Dermatology Pathologist: Sharmaine Levy MD Specimen: Skin, right postauricular 5:22 PM CDT DERMATOPATHOLOGY LABORATORY Final Diagnosis Specimen A. SKIN, right postauricular: BASAL CELL CARCINOMA, SUPERFICIAL MULTIFOCAL (C44.41) 5:22 PM CDT DERMATOPATHOLOGY LABORATORY at 1722 CDT Clinical History R/O BCC 5:22 PM CDT DERMATOPATHOLOGY LABORATORY Gross Description Specimen A: Received is one formalin filled container labeled with the patient's name and designated right postauricular. The specimen consists of a shave biopsy measuring 6x5x1 mm. Jar 0. 5:22 PM CDT DERMATOPATHOLOGY LABORATORY Microscopic Description Specimen A. SKIN, right postauricular: Attached to the undersurface of the epidermis, there are small aggregates of basaloid cells with a high nuclear to cytoplasmic ratio and peripheral palisading. 5:22 PM CDT DERMATOPATHOLOGY LABORATORY Disclaimer An external and internal positive and negative controls are appropriate for the histochemical, immunohistochemical and immunofluorescence stain(s) in this case (if any), except where stated explicitly. The performance characteristics of the stain(s) cited in this report were developed and its performance characteristic determined by the Dermatopathology Laboratory at [facility], directed by Dr. Nguyen Oneal. These tests need not be, and therefore are not, approved by the [place] Food and Drug Administration. The tests are used for clinical purposes. Billing Codes Specimen Charges Stain Charges 88190 1 5:22 PM CDT DERMATOPATHOLOGY LABORATORY Embedded Images 5:22 PM CDT DERMATOPATHOLOGY LABORATORY Pathology/Cytolo gy TISSUE SPECIMEN FROM SKIN / Unknown Collection / Unknown 08/28/2025 10:33 AM CDT 08/28/2025 10:33 AM CDT Steph Nelson MD LAB - PATHOLOGY/CYTOLOGY [facility] Final Result DERMATOPATHOLOGY LABORATORY [facility] - Department of Dermatology [facility] [address], [address] [place] [address], [facility] [phone] from Last 3 Months Insurance MEDICARE [facility] MEDICARE Care Teams Merchant Tailor Relationship Specialty Start Date End Date Juan Pablo Narvaez DO PCP - General 04/23/18
--- OUTSIDE RECORDS SUMMARY | 2025-09-06 06:41 | XMS_ITS | Clinical Summary ---
Author Organization [facility] [address] Address [address] [place] [address] Care Team Providers Care Bottling Line Operator Name Role Phone Juan Pablo Narvaez DO Primary Care Provider Allergies No known active allergies Medications Synthroid 50 mcg tablet 10/10/2022 Active omeprazole (PriLOSEC) 20 mg capsule 10/10/2022 Active oxybutynin XL (DITROPAN-XL) 5 mg 24 hr tablet 10/23/2022 Act kori famotidine (PEPCID) 10 mg tablet Take 1 tablet (10 mg total) by mouth 2 (two) times a day Patient is taking twice a week Active fish qpk-gdtkk-6-vit C-vit E 2,000-650-12 mg/2.5 gram emulsion in packet Take by mouth Active vitamin D3-vitamin K2 25 mcg (1,000 unit)-90 mcg tablet,disinteg rating Take by mouth Active iayskwaj-iaz-eh lic acid-vit K 400-80 mcg capsule Take [...] on file 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
== END 2025-09-06 06:38 | disposition home or self-care (01) ==
PROVIDERS: PCP Internal Medicine; Visit Provider Nurse Practitioner
DX: R25.1 Tremor, unspecified (principal); R90.82 White matter disease, unspecified
CPT/HCPCS: 70450